=== PATIENT | female | born 1990 | race Caucasian/White ===

== ENCOUNTER 2024-04-14 15:39 | Outpatient (CLI) | payer BC, SELFPAY ==
[2024-04-16 20:24] LABS: HPV Source Vaginal; HPV, High Risk by TMA Not Detected
== END 2024-04-14 15:40 | disposition home or self-care (01) ==
PROVIDERS: PCP Nurse Practitioner Family; Visit Provider Nurse Practitioner Family
DX: Z12.4 Encounter for screening for malignant neoplasm of cervix (principal); Z11.51 Encounter for screening for human papillomavirus (HPV)
CPT/HCPCS: 87624; 87625; 88141; 88142

== ENCOUNTER 2024-11-04 15:52 | Outpatient (CLI) | payer BC, SELFPAY ==
--- NOTE | 2024-11-04 16:00 | CRLHL7_ITS ---
For Patients: As a result of the Century Cures Act, medical imaging exams and procedure reports are released immediately into your electronic medical record. You may view this report before your referring provider. If you have questions, please contact your health care provider. OB ULTRASOUND FIRST TRIMESTER TRANSVAGINAL INDICATION: Dating and viability. TECHNIQUE: Real time melton scale imaging of the fetus was performed. Transvaginal imaging performed. LMP: 09/06/2024. DEEJAY by LMP: 06/13/2025. GA: 8 w, 3 d. Previous US: No. CRL: 1.9 cm. 8 w 3 d. DEEJAY: 06/13/2025. FHR: 176 BPM. Gestational sac: 2.2 cm. Appears within normal limits. Yolk sac: 3.6 mm. Appears within normal limits. Right ovary: Within normal limits. 2.5 x 1.4 x 1.7 cm. Left ovary: Within normal limits. 3.2 x 2.5 x 2.4 cm. CL. IMPRESSION: 1. Single living intrauterine measures 8 weeks 3 days with sonographic due date 06/13/2025. 2. Small left inferior subchorionic hemorrhage measures 3 x 5 x 4 mm. Jack Buckner M.D. Diagnostic Radiologist [email or web address] SP/Dictated by: Jack Buckner MD @ 11/04/2024 5:13:00 PM (Electronically Signed)
== END 2024-11-04 15:53 | disposition home or self-care (01) ==
LOC: US 15:52
PROVIDERS: PCP Nurse Practitioner Family; Visit Provider Registered Nurse
DX: O20.9 Hemorrhage in early pregnancy, unspecified (principal); Z3A.08 8 weeks gestation of pregnancy
CPT/HCPCS: 76817

== ENCOUNTER 2024-11-04 17:04 | Outpatient (CLI) | payer BC, SELFPAY ==
[2024-11-04 22:36] LABS: Chlamydia DNA Amplified* NOT DETECTED (No Detected); GC DNA Amplified* NOT DETECTED (No Detected)
== END 2024-11-04 17:05 | disposition home or self-care (01) ==
PROVIDERS: PCP Nurse Practitioner Family; Visit Provider Registered Nurse
DX: Z34.90 Encounter for supervision of normal pregnancy, unspecified, unspecified trimester (principal)
CPT/HCPCS: 76817; 82565; 82570; 83020; 83021; 84156; 84450; 84460; 84520; 85660; 86592; 86703; 86704; 86706; 86762; 86787; 86803; 86850; 87086; 87340; 87491; 87591

== ENCOUNTER 2024-11-09 08:16 | Outpatient (CLI) | payer BC, SELFPAY | END 2024-11-09 08:17 | disposition home or self-care (01) | LOC: NFLDREF 16:36 | PROVIDERS: PCP Nurse Practitioner Family; Referring Provider Nurse Practitioner Family; Visit Provider Registered Nurse | DX: Z34.81 Encounter for supervision of other normal pregnancy, first trimester (principal) | CPT/HCPCS: 82570; 84156 ==

== ENCOUNTER 2024-11-09 20:05 | Emergency (ER) | payer BC, SELFPAY ==
--- OUTSIDE RECORDS SUMMARY | 2024-11-09 20:07 | XMS_ITS | Clinical Summary ---
Author Organization [facility] Address [address] [place] [id number] Care Team Providers Care Activities Specialist Name Role Phone Pcp, No Primary Care Provider Unavailabl e Allergies Active Allergy Reactions Criticality Noted Date Comments Penicillins *Unknown Unknown 11/29/2018 Medications No known medications Social History Tobacco Use Types Packs/Day Years Used Date Smoking Tobacco: Never Smokeless Tobacco: Never Alcohol Use Standard Drinks/Week Comments Not Currently 0 (1 standard drink = 0.6 oz pur e alcohol) PHQ-2 Answer Date Recorded PHQ-2 TOTAL SCORE 0 07/30/2019 Social Connections Answer Date Recorded Frequency of Communication with Friends and Fami ly Not on file 02/26/2021 Financial Resource Strain Answer Date R ecorded Difficulty of Paying Living Expenses Not on file 02/26/2021 Difficulty of Paying Living Expenses Not on file 02/26/2021 Comments No Sex and Gender Information Value Date Recorded Sex Assigned at Not on file Legal Sex Female 7:58 PM CDT Gender Identity Not on file Sexual Orientation Not on file Obstetrics History Last Filed Vital Signs Vital Sign Reading Time Taken Comments Blood Pressure 124/72 11/29/2018 8:10 AM CDT Pulse 80 11/29/2018 8:10 AM CDT Temperature - - Respiratory Rate 14 11/29/2018 8:10 AM CDT Oxygen Saturation 100% 11/29/2018 8:10 AM CDT Inhaled Oxygen Concentration - - Weight 106.1 kg (234 lb) 11/29/2018 8:10 AM CDT Height - - Body Mass Index - - Plan of Treatment Health Maintenance Due Date Last Done Comments Tetanus booster 2001 HIV for age 15-65 2005 BMI (ht and wt on same day) for age 18+ 2008 Hepatitis C screening for ag e 18-79 2008 Hepatitis B series for 19+ ( 1 of 3 - 19+ 3-dose series) 2009 HPV series for age 9-45 (1 - 3-dose SCDM series) 2017 Depression screening for age 12+ 07/29/2020 07/30/19 20 Pap test for age 21-65 03/10/2023 03/10/2020 COVID-19 vaccine series ( season) 2024 Influenza Vaccine (#1) 2024 RSV vaccine for adults or (1 - 1-dose 75+ series) 2065 Pneumococcal series for age 6-49 Aged Out No longer eligible based on patient's age to complete this topic Procedures Procedure Name Priority Date/Time Associated Diagnosis Comments STEAM PIPE FITTER THIN PREP PAP SCREEN IMAGED Routine 03/10/2020 12:00 PM SPECIALTY THERAPIST from Last 3 Months or Most Recently Relevant to Health Maintenance Results * STEAM PIPE FITTER THIN PREP PAP SCREEN IMAGED (03/10/2020 12:00 PM SPECIALTY THERAPIST) Case Report Gynecologic Cytology Report Case: [id number] Authorizing Provider: Vicki Chang CNM Collected: 03/10/2020 1200 Ordering Location: [facility] Received: 03/12/2020 1343 First Screen: Edel Schilling Specimen: STEAM PIPE FITTER ThinPrep Vial Screening, Cervical/Vaginal 03/22/2020 1:54 PM SPECIALTY THERAPIST [facility]AL [facility]AT[facility] INTERPRETATION/ RESULT NEGATIVE FOR INTRAEPITHELIAL LESION OR MALIGNANCY (NIL) (none) 03/22/2020 1:54 PM SPECIALTY THERAPIST [facility] ENTRAL LABORATORY at 1354 SPECIALTY THERAPIST SPECIMEN ADEQUACY Satisfactory for evaluation Endocervical component present 03/22/2020 1:54 PM SPECIALTY THERAPIST [facility] ENTRAL LAB[facility]AT[facility] HPV REQUEST HPV if ASCUS 03/22/2020 1:54 PM SPECIALTY THERAPIST [facility] EN[facility]AL LAB[facility]AT[facility] Date of LMP unknown 03/22/2020 1:54 PM SPECIALTY THERAPIST [facility] Last Pap Date unknown 03/22/2020 1:54 PM SPECIALTY THERAPIST [facility]- [facility] Last Pap Result First Pap/Unknown 1:54 PM SPECIALTY THERAPIST [facility] Menstrual Status 03/22/2020 1:54 PM SPECIALTY THERAPIST [facility] LAB SELECT APPROPRIATE DIAGNOSIS Low Risk Z12.4 03/22/2020 1:54 PM SPECIALTY THERAPIST [facility] [place] Bx Done Today No 03/22/2020 1:54 PM SPECIALTY THERAPIST [facility] Additional Information 03/22/2020 1:54 PM SPECIALTY THERAPIST [facility] Comment: Interpreted at [facility] - [address], [place] [address] Automated Review Successful 03/22/2020 1:54 PM SPECIALTY THERAPIST [facility] Comment:Specimen processed s uccessfully by automated paper bag press operator device, ThinPrep Imaging System, [employer] Note The pap test is a screening technique, not a diagnostic procedure. It is used primarily to screen for squamous cancers and precursor lesions. Published studies have shown that it is subject to both false negative and false positive results. The pap test should not be used as the sole means to diagnose or exclude pre-malignant and malignant lesions. 03/22/2020 1:54 PM SPECIALTY THERAPIST [facility] Other (Cervical/Vagina l) 03/10/2020 12:00 PM SPECIALTY THERAPIST 03/12/2020 1:43 PM SPECIALTY THERAPIST us [facility] Final Re sult [facility] [address] [place] [address], [place] from Last 3 Months or Most Recently Relevant to Health Maintenance Insurance [facility] Care Teams Activities Specialist Relationship Specialty Start Date End Date Pcp, No . PCP - General 11/29/18
[2024-11-09 20:13] VITALS: BP 135/77; PULSE 90; RESP 20; TEMP 37.2; O2SAT 97; BMI 42.1
--- NOTE | 2024-11-09 20:17 | ED.GENADULT ---
HPI - General Adult General Chief complaint: Unspecified Complaint, Adult Stated complaint: Cold Symptoms Time Seen by Provider: 11/09/24 20:11 History of Present Illness HPI narrative: CC: Congestion pt. 9 weeks preganant. having congestion for has 2 days. denies fevers, n/v, diarrhea. 34-year-old woman presenting to the emergency department Related Data Home Medications ?Medication ?Instructions ?Recorded ?Confirmed cetirizine 10 mg capsule (Zyrtec) 10 mg PO QDAY PRN 11/04/24 11/04/24 docosahexaenoic acid 200 mg mg PO 11/04/24 11/04/24 capsule ( DHA) Previous Rx's ?Medication ?Instructions ?Recorded sertraline 50 mg tablet (Zoloft) 50 mg PO QDAY #90 tabs 04/14/24 fluticasone propionate 50 1 spray intranasal DAILY #16 grams 07/26/24 mcg/actuation nasal spray,suspension Allergies Allergy/AdvReac Type Severity Reaction Status Date / Time Penicillins Allergy Intermediate Unknown Verified 11/09/24 20:15 PFSH PFSH Surgical History H/O oral surgery ?Z98.890 - Other specified postprocedural states (ICD-10) Status post primary low transverse section ?Z98.891 - History of uterine scar from previous surgery (ICD-10) Family History Brother Transgender Mental health disorder Maternal Grandmother Kidney disease Renal cancer Alzheimers disease Social History Narrative: . 1 child. What is your current living situation?: I presently have a place to live Problems where you live: no known problems In the past 12 months, utilities in danger of being shut off: no In past 12 months, lack of transportation kept you from medical appts, meetings, work, or getting things needed for daily living: no In the past 12 mos, have been you worried that your food would run out before you had money to buy more?: never true In the past 12 mos, the food you bought just didn't last and you didn't have money to buy more?: never true Smoking Status: Never smoker How often does anyone, including family, friends and others, physically hurt you: never How often does anyone, including family, friends and others, insult or talk down to you: never How often does anyone, including family, friends and others, threaten you with harm: never How often does anyone, including family, friends and others, scream or curse at you: never Exam Const: Vital Signs, click to edit/add: Vital Signs - 24 hr 11/09/24 20:13 Temperature 99.0 F Pulse Rate [Right Pulse Oximeter] 90 Respiratory Rate 20 Blood Pressure [Ri ght Upper Arm] 135/77 Pulse Oximetry 97 Oxygen Delivery Me thod Room Air Course Vital Signs Vital signs: Initial Vital Signs Temperature 99.0 F 11/09/24 20:13 Temperature Source Temporal Artery Scan 11/09/24 20:13 Pulse Rate 90 11/09/24 20:13 Respiratory Rate 20 11/09/24 20:13 Blood Pressure 135/77 11/09/24 20:13 Blood Pressure Mean 96 11/09/24 20:13 Blood Pressure Position Sitting 11/09/24 20:13 Pulse Oximetry 97 11/09/24 20:13 Oxygen Delivery Method Room Air 11/09/24 20:13 Vital Signs Temperature 99.0 F 11/09/24 20:13 Pulse Rate 90 11/09/24 20:13 Respiratory Rate 20 11/09/24 20:13 Blood Pressure 135/77 11/09/24 20:13 Pulse Oximetry 97 11/09/24 20:13 Oxygen Delivery Method Room Air 11/09/24 20:13 Temperature 99.0 F 11/09/24 20:13 Pulse Rate 90 11/09/24 20:13 Respiratory Rate 20 11/09/24 20:13 Blood Pressure 135/77 11/09/24 20:13 Pulse Oximetry 97 11/09/24 20:13 Oxygen Delivery Method Room Air 11/09/24 20:13 Discharge Plan Discharge Prescriptions: No Action sertraline [Zoloft] 50 mg tablet 50 mg PO QDAY Qty: 90 3RF DHA 200 mg capsule PO Zyrtec 10 mg capsule 10 mg PO QDAY PRN fluticasone propionate 50 mcg/actuation spray,suspension 1 spray intranasal DAILY Qty: 16 3RF Follow Up/Referrals: Jaz Quach APRN, F[employer]T [employer]ER [Primary Care Provider, Family Practice]
--- NOTE | 2024-11-09 20:30 | ED_ITS ---
HPI - General Adult General Date Seen: 11/09/24 Chief complaint: Unspecified Complaint, Adult Stated complaint: Cold Symptoms Time Seen by Provider: 11/09/24 20:11 Source: patient, family, RN notes reviewed and old records reviewed Mode of arrival: ambulatory Limitations: no limitations History of Present Illness HPI narrative: 34-year-old the end at 9 weeks gestation presents here with the cough head cold symptoms. She has had this now for 2 days, thinks she may have had a fever at home, but admits she did not take her temperature, lots of nasal discharge and fullness in her face, she is not coughing up any purulent sputum, does not feel real shortness of breath. There is no nausea vomiting or diarrhea, she has had no vaginal discharge or spotting noted. Did take 1 cold tablet at home. Presents here for evaluation. Full immunization series is noted at home. His way here with her . Denies any chest pain associated with this, any leg swelling, no nausea vomiti ng, no history of dysuria frequency or diarrhea. No pulmonary cardiac history for her. Related Data Home Medications ?Medication ?Instructions ?Recorded ?Confirmed cetirizine 10 mg capsule (Zyrtec) 10 mg PO QDAY PRN 11/04/24 docosahexaenoic acid 200 mg mg PO 11/04/24 11/04/24 capsule ( DHA) Previous Rx's ?Medication ?Instructions ?Recorded sertraline 50 mg tablet (Zoloft) 50 mg PO QDAY #90 tab s 04/14/24 fluticasone propionate 50 1 spray intranasal DAILY #16 grams 07/26/24 mcg/actuation nasal spray,suspension Allergies Allergy/AdvReac Type Severity Reaction Status Date / Time Penicillins Allergy Intermediate Unknown Verified 11/09/24 20:15 Review of Systems Status of ROS: Reports: 10 or more systems reviewed and unremarkable except as noted in History and below PFSH PFSH Surgical History H/O oral surgery ?Z98.890 - Other specified postprocedural states (ICD-10) Status post primary low transverse section ?Z98.891 - History of uterine scar from previous surgery (ICD-10) Family History Brother Transgender Mental health disorder Maternal Grandmother Kidney disease Renal cancer Alzheimers disease Social History Narrative: . 1 child. What is your current living situation?: I presently have a place to live Problems where you live: no known problems In the past 12 months, utilities in danger of being shut off: no In past 12 months, lack of transportation kept you from medical appts, meetings, work, or getting things needed for daily living: no In the past 12 mos, have been you worried that your food would run out before you had money to buy more?: never true In the past 12 mos, the food you bought just didn't last and you didn't have money to buy more?: never true Smoking Status: Never smoker Second hand tobacco smoke exposure: No How often do you have a drink containing alcohol: never AUDIT-C Alcohol total score: 0 Non-prescribed substance use: denies use How often does anyone, including family, friends and others, physically hurt you : never How often does anyone, including family, friends and others, insult or talk down to you: never How often does anyone, including family, friends and others, threaten you with harm: never How often does anyone, including family, friends and others, scream or curse at you: never Exam Narrative: Exam Narrative: On examination she is in no apparent distress he is pleasant alert speaking to me in full sentences, but does have some audible wheezing. Pupils equal round reactive to light there is no scleral icterus redness or TMs are normal oropharynx is normal, her neck is supple full range of motion, no lymphadenopathy anterior posterior chains, her chest has good air entry bilaterally with crackles in the bases bilaterally. With occasional expiratory wheezes. No signs respiratory distress or heart sounds no clicks murmurs or gallops noted. Her abdomen is soft, there is no guarding no organomegaly bowel sounds are normal. She moves all extremities independently well with absence of edema. Skin reveals no rashes. Const: Vital Signs, click to edit/add: Vital Signs - 24 hr 11/09/24 20:13 Temperature 99.0 F Pulse Rate [Right Pulse Oximeter] 90 Respiratory Rate 20 Blood Pressure [Ri ght Upper Arm] 135/77 Pulse Oximetry 97 Oxygen Delivery Me thod Room Air Course Vital Signs Vital signs: Initial Vital Signs Temperature 99.0 F 11/09/24 20:13 Temperature Source Temporal Artery Scan 11/09/24 20:13 Pulse Rate 90 11/09/24 20:13 Respiratory Rate 20 11/09/24 20:13 Blood Pressure 135/77 11/09/24 20:13 Blood Pressure Mean 96 11/09/24 20:13 Blood Pressure Position Sitting 11/09/24 20:13 Pulse Oximetry 97 11/09/24 20:13 Oxygen Delivery Method Room Air 11/09/24 20:13 Vital Signs Temperature 99.0 F 11/09/24 20:13 Pulse Rate 90 11/09/24 20:13 Respiratory Rate 20 11/09/24 20:13 Blood Pressure 135/77 11/09/24 20:13 Pulse Oximetry 97 11/09/24 20:13 Oxygen Delivery Method Room Air 11/09/24 20:13 Temperature 99.0 F 11/09/24 20:13 Pulse Rate 90 11/09/24 20:13 Respiratory Rate 11/09/24 20:13 Blood Pressure 135/77 11/09/24 20:13 Pulse Oximetry 97 11/09/24 20:13 Oxygen Delivery Method Room Air 11/09/24 20:13 Medical Decision Making MDM Narrative Medical decision making narrative: Differential diagnosis include a viral upper respiratory illness, histoplasmosis, tuberculosis, pneumonia, COPD exacerbation, emphysema, strep throat illness, bronchitis, asthma, reactive airway disease, chronic cough, medication side effects, allergic rhinitis with postnasal drip, foreign body aspiration, aspiration pneumonia, bronchiolitis, and gastroesophageal reflux disease as well as multiple other considerations. I do think this is more likely viral we will do a viral swab, she does not have a fever here, good saturations, and no signs respiratory distress. She does sound like she is wheezy however, and we will give her some Zithromax along with prednisone and then wean MDI, I recommend recheck in a couple days, back here if worsening signs and symptoms. We talked about doing an x-ray but at 9 weeks I would hold off on this even with shielding. I do not think is going to change my management, she tells me there blood pressure in the 130 range is little high and told not to take any cold medications at home, as this will raise up her blood pressure. She can have this rechecked in 24-48 hours on her recheck, to make sure she is improving. Went over signs symptoms when she should come back to the emergency. Medical Records Medical records reviewed: Yes I reviewed the patient's medical records Discharge Plan Discharge Clinical Impression: Cough, Acute bronchospasm, Patient Disposition: Home w/ Parent or Adult Condition: Stable Instructions: Bronchospasm (ED), at 7 to 10 Weeks (ED) Additional Instructions: Home rest medications as directed avoids a cold medicines, Tylenol safe in , I would avoid ibuprofen if he can. Follow-up in 24-48 hours for recheck with primary care/cumulative effects analyst. Specially the blood pressure. Return as needed for worsening shortness of breath. Activity Level: Light activity Prescriptions: No Action sertraline [Zoloft] 50 mg tablet 50 mg PO QDAY Qty: 90 3RF DHA 200 mg capsule PO Zyrtec 10 mg capsule 10 mg PO QDAY PRN fluticasone propionate 50 mcg/actuation spray,suspension 1 spray intranasal DAILY Qty: 16 3RF Follow Up/Referrals: Jaz Quach, LICENSED MENTAL HEALTH COUNSELOR, POWER SYSTEM OPERATOR [Primary Care Provider, Family Practice] Stand Alone Forms: [employer]th Info Instructions
[2024-11-09 20:45] VITALS: BP 129/74; PULSE 85; RESP 20; TEMP 37.2; O2SAT 97
[2024-11-09 21:16] LABS: PCR FLU A Negative PCR FLU A (Negative); PCR FLU B Negative PCR FLU B (Negative); PCR RSV Negative PCR RSV (Negative); SARS PCR* Negative SARS-CoV-2 (Negative)
[2024-11-09 21:23] VITALS: BP 129/74; PULSE 85; RESP 20; TEMP 37.2
== END 2024-11-09 21:23 | disposition home or self-care (01) ==
LOC: ED 20:46
PROVIDERS: Emergency Provider Family Medicine; PCP Nurse Practitioner Family
DX: R05.9 Cough, unspecified (principal); J98.01 Acute bronchospasm; Z3A.09 9 weeks gestation of pregnancy
CPT/HCPCS: 82570; 84156; 87631; 99284

== ENCOUNTER 2024-12-02 09:03 | Outpatient (CLI) | payer BC, SELFPAY | END 2024-12-02 09:04 | disposition home or self-care (01) | PROVIDERS: PCP Nurse Practitioner Family; Visit Provider Obstetrics & Gynecology | DX: R03.0 Elevated blood-pressure reading, without diagnosis of hypertension (principal) | CPT/HCPCS: 84450; 84460 ==